=== PATIENT | female | born 1950 | race Caucasian/White ===

== ENCOUNTER → 2019-12-13 | Outpatient (CLI) | payer MEDICARE ==
--- NOTE | 2019-12-13 15:56 | RAD ---
Indication: Postmenopausal screening for osteoporosis. COMPARISON: None available. Bone Density: -BMD: (g/cm2) - AP Spine Total (L1-L4).......... 1.040. - Total right forearm ................. 0.620. T-Score: - AP Spine Total (L1-L4)......... -1.2. -Total right forearm ................. -1.3. Z-Score: - AP Spine Total (L1-L4).......... 0.5. - Total right forearm ................. 0.4. World Health Organization criteria for BMD interpretation classify patients as Normal (T-score at or above -1.0), Osteopenic (T-score between -1.0 and -2.5), or Osteoporotic (T-score at or below -2.5). Impression: 1. AP Spine Total L1-L4--- osteopenia. 2. Total right forearm --- osteopenia. Electronically signed by: Alexey Aldana MD (12/13/2019 3:53 PM) [facility] – [place]
--- NOTE | 2019-12-13 15:56 | RAD ---
Indication: Postmenopausal screening for osteoporosis. COMPARISON: None available. Bone Density: -BMD: (g/cm2) - AP Spine Total (L1-L4).......... 1.040. - Total right forearm ................. 0.620. T-Score: - AP Spine Total (L1-L4)......... -1.2. -Total right forearm ................. -1.3. Z-Score: - AP Spine Total (L1-L4).......... 0.5. - Total right forearm ................. 0.4. World Health Organization criteria for BMD interpretation classify patients as Normal (T-score at or above -1.0), Osteopenic (T-score between -1.0 and -2.5), or Osteoporotic (T-score at or below -2.5). Impression: 1. AP Spine Total L1-L4--- osteopenia. 2. Total right forearm --- osteopenia. Electronically signed by: Alexey Aldana MD (12/13/2019 3:53 PM) [facility] – [place]
== END | disposition home or self-care (01) ==
LOC: DXRAD 09:30
PROVIDERS: ATTEND Family Medicine
DX: M85.88 Other specified disorders of bone density and structure, other site (principal)
CPT/HCPCS: 77080; 77081

== ENCOUNTER → 2020-09-17 | Outpatient (CLI) | payer MEDICARE ==
--- NOTE | 2020-09-17 16:13 | RAD ---
BILATERAL SCREENING MAMMOGRAM, 3-D History: Routine screening. Comparison: 07/17/2015. Technique: MLO and CC digital tomosynthesis (3D) images obtained. Radiologist reviewed these images on dedicated workstation. Findings: Breast Tissue Density B : There are scattered areas of fibroglandular density. There are no dominant masses, suspicious microcalcifications, or architectural distortion. IMPRESSION: No mammographic evidence of malignancy. Recommend routine screening. BI-RADS category 1: Negative. The images were reviewed with computer-aided detection. Patient information is entered into reminder system with a target due date for the next screening mammogram. Mammography is the most sensitive method for finding small breast cancers, but it does not detect them all and is not a substitute for careful clinical examination. A negative mammogram does not negate a clinically suspicious finding and should not result in delay in biopsying a clinically suspicious abnormality. "Our facility is accredited by the [employer] Mammography Program." Electronically signed by: Teodoro Salgado MD (09/17/2020 4:10 PM) [email or web address]
== END ==
LOC: MAMMO 08:48
PROVIDERS: ATTEND Family Medicine
DX: Z12.31 Encounter for screening mammogram for malignant neoplasm of breast (principal)
CPT/HCPCS: 77063; 77067

== ENCOUNTER → 2021-10-07 | Outpatient (CLI) | payer MEDICARE ==
--- NOTE | 2021-10-07 14:59 | RAD ---
DATE: 10/07/2021 EXAM: MG BILAT SCREEN+ASHVIN HISTORY: Screening COMPARISON: 09/17/2020, 07/17/2015 This study was interpreted with the benefit of Computerized Aided Detection (CAD). Breast Density: SCATTERED The breast parenchyma shows scattered fibroglandular densities. Breast pare nchyma level B. FINDINGS: There is an 8 mm focal asymmetry in the retroareolar left breast at 10:00. No suspicious ca lcifications or architectural distortion in the left breast. No suspicious masses, calcifications, or architectural distortion in the right breast. IMPRESSION: 8mm focal asymmetry in the retroareolar left breast at 10:00. Recommend spot compression CC and MLO views and possible ultrasound to further evaluate. BI-RADS CATEGORY: 0 INCOMPLETE: NEEDS ADDITIONAL IMAGING EVALUATION AND/OR PRIOR MAMMOGRAMS FOR [facility]. RECOMMENDED FOLLOW-UP: ADD ADDITIONAL IMAGING PQRS compliance statement: Patient information was entered into a reminder system with a target due d ate for the next mammogram. Mammography is a sensitive method for finding small breast cancers, but it does not detect them all a nd is not a substitute for careful clinical examination. A negative mammogram does not negate a clin ically suspicious finding and should not result in delay in biopsying a clinically suspicious abnorma lity. "Our facility is accredited by the [employer] Mammography Program." Electronically signed by: Demetra Pelletier MD (10/07/2021 2:57 PM) [id number]
== END ==
LOC: MAMMO 10:50
PROVIDERS: ATTEND Family Medicine
DX: Z12.31 Encounter for screening mammogram for malignant neoplasm of breast (principal)
CPT/HCPCS: 77063; 77067

== ENCOUNTER → 2021-10-28 | Outpatient (CLI) | payer MEDICARE ==
--- NOTE | 2021-10-28 13:18 | RAD ---
PROCEDURE: MG DIAGNOSTICUNILAT MAMMO HISTORY: The patient is 71 years old and is seen for Reason: ABNORMAL MAMMO CALL BACK / Spl. Instruct ions: / History: . COMPARISON: October 07, 2021 and September 17, 2022 and July 17, 2015 TECHNIQUE: Left breast spot compression views in CC and MLO DENSITY: There are scattered fibroglandular densities. FINDINGS: Previously seen asymmetry within the left retroareolar breast is less apparent on spot comp ression views. Overall the asymmetry is similar compared to 2015 IMPRESSION: 1. Left retroareolar asymmetry is less apparent on spot compression views, likely overlapping fibrog landular tissue. Recommend return to annual screening. Recommend annual screening mammograms per [employer] [employer] guidelines. She will be due in one year. BI-RADS category 2 Benign Patient entered into a reminder system for annual screening mammogram. Electronically signed by: Tino Bermudez DO (10/28/2021 1:15 PM) [email or web address]
== END ==
LOC: MAMMO 12:47
PROVIDERS: ATTEND Family Medicine
DX: R92.2 Inconclusive mammogram (principal)
CPT/HCPCS: 77065